=== PATIENT | male | born 1995 | race African-American/Black ===

== ENCOUNTER 2022-10-31 10:43 | Emergency (ER) | payer MEDICAID ==
[~2022-10-31] VITALS: Ht 185.4 cm; Wt 103.0 kg
[2022-10-31 10:50] VITALS: TEMP 98.3
[2022-10-31 12:13] VITALS: BP 131/79; PULSE 89; RESP 16
== END 2022-10-31 12:18 | disposition home or self-care (01) ==
LOC: EMS 10:49
DX: S61.217D Laceration without foreign body of left little finger without damage to nail, subsequent encounter (principal); X58.XXXA Exposure to other specified factors, initial encounter; Y93.89 Activity, other specified; Y92.89 Other specified places as the place of occurrence of the external cause; Y99.8 Other external cause status
CPT/HCPCS: 99281; Z7502